=== PATIENT | female | born 2005 | race Caucasian/White ===

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

== ENCOUNTER 2025-01-03 15:58 | Emergency (ER) | payer MEDICAID, SELFPAY ==
[2025-01-03 16:28] VITALS: BP 111/68; PULSE 60; RESP 16; TEMP 36.9; O2SAT 99; BMI 23.8
--- NOTE | 2025-01-03 16:30 | ED.SKABFB ---
HPI - Skin/Abscess/Foreign Bdy General Chief complaint: General Medical Stated complaint: Infected piercing, fever Time Seen by Provider: 01/03/25 20:03 Source: patient and other ( senior living staff) Mode of arrival: ambulatory Limitations: language barrier ( Sierra Leonean-speaking bike assembler utilized) History of Present Illness ED Provider: Jenna Bennett NP HPI narrative: patient is a 19-year-old female who presents to the emergency department with senior living staff coming from a [facility], with reports of 8 days with intermittent fever, cough, a full-body rash previously red bumpy and itchy but has significantly improved over the past 2 days. Denies any known sick contacts denies any known allergens. Denies sore throat, difficulty breathing, difficulty swallowing, chest pain, shortness of breath. Related Data Previous Rx's ?Medication ?Instructions ?Recorded valacyclovir 1 gram tablet 1,000 mg PO BID cold sore outbreak 11/26/24 7 days #14 tabs amoxicillin 500 mg capsule 500 mg PO BID #19 caps 01/03/25 Allergies Allergy/AdvReac Type Severity Reaction Status Date / Time No Known Allergies Allergy Verified 01/03/25 16:34 Review of Systems Review of Systems: Yes all other systems are reviewed and are negative PMFSH Past Medical History Attestation statement: The following information was validated with the patient. Source: old records reviewed Social History Social History Advance Directives: No Advance Directives Information Provided: No Do you have a plan to hurt others: No Plan Physical Exam Vital Signs: Vital Signs: Last Vital Signs Temp 98.5 F 01/03/25 16:28 Pulse 60 01/03/25 16:28 Resp 16 01/03/25 16:28 BP 111/68 01/03/25 16:28 Pulse Ox 99 01/03/25 16:28 O2 Del Method Room Air 01/03/25 16:28 BMI result Body Mass Index 23.8 Appearance: Alert.?Oriented to person, place and time. No acute distress.?Normal affect. Eyes: Pupils equal, round and reactive to light.? ENT: Pharynx Is erythematous without tonsillar hypertrophy or exudates. Uvula is midline. No trismus. No drooling. Neck: Normal inspection.? Neck supple.?? No cervical adenopathy. CVS: Heart sounds normal. Normal heart rate and rhythm.? Pulses normal.?? Respiratory: No respiratory distress.? Lung sounds clear to auscultation bilaterally?? Abdomen: Soft and non-tender. Normoactive bowel sounds. ? Skin: Skin warm and dry.? Normal skin color.? No appreciable rash Extremities: No lower extremity edema.? Neuro: Moves all extremities spontaneously. Sensation intact bilaterally. Ambulates with normal steady gait. Course Course Course Narrative: This is an RME: Additional HPI, ROS, PE not included below will be deferred to primary provider. RME assessment and note performed by: Beverly Siddiqui PA-C This is a 48-female who presents to the ER with a complaint of right nare swelling and pain. Reports 8 days ago she has had fevers, cough and full body rash > not appreciated on exam as no privacy on exam. Also reporting rash throughout her entire body. Pt with ?keloid noted to right nare with TTP. Plan: Viral swabs, basic labs, further ER eval needed Medical Decision Making Medical Decision Making MDM Narrative: patient is a 19-year-old female who presents emergency department for evaluation of fever, cough, generalized rash which is not appreciated at the time of my evaluation. Workup obtained prior to my assumption of care reveals CBC without leukocytosis, mild normocytic anemia not meeting transfusion criteria, no thrombocytopenia. No significant electrolyte derangement. No JOHNNIE. LFTs are unremarkable. Viral serologies are negative. Group a strep testing is positive. Examination is not consistent with RPA/ ROAD TEST EXAMINER, and mild pharyngitis. Reviewed previously reported rash may have been secondary to the strep infection, I do not appreciate a rash at the time of my evaluation. She was given 1st dose of amoxicillin in the emergency department sent remainder prescription to pharmacy. Discussed worrisome signs and symptoms that would warrant re-evaluation, outpatient follow-up with primary care doctor. Differential Diagnosis Differential Diagnoses: The differential diagnosis associated with the presentation includes ( See narrative above) Lab Data [facility] Lab Attestation statement: I reviewed the patient's lab results. ( see narrative above) 01/03/25 16:46 01/03/25 16:46 Labs: Lab Results 01/03/25 01/03/25 Range/Units 16:45 16:46 WBC 6.1 (4.8-10.8) X10*3/uL RBC 3.89 L (4.20-5.50) X10*6/uL Hgb 10.8 L (12.0-16.0) g/dl Hct 33.2 L (37.0-47.0) % MCV 85.3 (80.0-98.0) fL MCH 27.8 (27.0-33.0) pg MCHC 32.5 (31.0-35.0) g/dl RDW 14.9 (11.0-16.0) % Plt Count 378 (160-400) X10*3/uL MPV 9.0 L (9.4-12.3) fL Immature Gran % (Auto) 0.3 (0.0-0.4) % Neut % (Auto) 53.0 (45-73) % Lymph % (Auto) 36.4 (20-40) % Norton % (Auto) 8.3 (2-11) % Eos % (Auto) 1.3 (0-4) % Baso % (Auto) 0.7 (0-2) % Lymph # (Auto) 2.2 (1.2-4.9) X10*3/uL Norton # (Auto) 0.5 (0.1-1.2) X10*3/uL Eos # (Auto) 0.1 (0.0-0.4) X10*3/uL Baso # (Auto) 0.0 (0.0-0.2) X10*3/uL Abs Immat Gran (auto) 0.02 (0.00-0.03) X10*3/uL Absolute Neuts (auto) 3.2 (2.0-8.3) x10*3/uL Absolute Nucleated RBC 0.000 (0.0-0.012) X10*3/uL Nucleated RBC % (auto) 0.0 (0.0-0.2) /100WBC Sodium 139 (135-145) mmol/L Potassium 4.3 (3.3-5.1) mmol/L Chloride 111 H (96-108) mmol/L Carbon Dioxide 25 (22-29) mmol/L Anion Gap 7 L (12-20) BUN 21 H (9-16) mg/dL Creatinine 0.61 (0.5-1.4) mg/dL Estim Creat Clear Calc 100.9 Estimated GFR > 60 Random Glucose 89 (60-115) mg/dL Calcium 9.6 (8.4-10.2) mg/dL Total Bilirubin 0.2 (0.0-1.0) mg/dL AST 18 (5-31) U/L ALT 11 (0-31) U/L Alkaline Phosphatase 84 (39-117) U/L Total Protein 7.5 (6.5-8.0) g/dL Albumin 4.4 (3.5-5.0) g/dL Influenza Type A (PCR) NEGATIVE (Negative) Influenza Type B (PCR) NEGATIVE (Negative) RSV RNA Qual (PCR) NEGATIVE (Negative) SARS-CoV-2 RNA (RT-PCR) NEGATIVE (Negative) S. pyogenes GrpA DANIELLE Positive A (Negative) Independent Historian Clinical information obtained from an independent historian. History obtained from or confirmed by: Other ( senior living staff) External Record Review External record reviewed: Outpatient record Prescription Management I considered prescription management with: Antibiotic Discharge Plan Discharge Clinical Impression: Acute streptococcal pharyngitis Patient Disposition: Home, Self-Care Instructions: Strep Throat (ED) Additional Instructions: received 1st dose of antibiotic in the emergency department tonight. Sent prescription for amoxicillin to take twice daily for a total of 10 days to pharmacy, begin prescription from the pharmacy tomorrow morning. Follow-up with primary care doctor. Return with a new or worsening symptoms or concerns Prescriptions: New amoxicillin 500 mg capsule 500 mg PO BID Qty: 19 0RF No Action valacyclovir 1 gram tablet 1,000 mg PO BID 7 Days Qty: 14 3RF Referrals: Joie Antoine PA-C [Primary Care Provider] - Print Language: Sierra Leonean
[2025-01-03 16:50] LABS: MANUAL DIFF FLAG NO
[2025-01-03 16:52] LABS: Basophils Percent Auto 0.7 % (0-2); Eosinophils Absolute Auto 0.1 X10*3/uL (0.0-0.4); Eosinophils Percent Auto 1.3 % (0-4); Hematocrit 33.2 % (37.0-47.0); Hemoglobin 10.8 g/dl (12.0-16.0); Imm Gran Abs Auto 0.02 X10*3/uL (0.00-0.03); Imm Gran Pct Auto 0.3 % (0.0-0.4); Lymphocytes Absolute Auto 2.2 X10*3/uL (1.2-4.9); Lymphocytes Percent Auto 36.4 % (20-40); Mean Corpuscular HGB Conc 32.5 g/dl (31.0-35.0); Mean Corpuscular Hemoglobin 27.8 pg (27.0-33.0); Mean Corpuscular Volume 85.3 fL (80.0-98.0); Monocytes Absolute Auto 0.5 X10*3/uL (0.1-1.2); Monocytes Percent Auto 8.3 % (2-11); Neutrophils Absolute Auto 3.2 x10*3/uL (2.0-8.3); Platelet Count 378 X10*3/uL (160-400); Red Blood Count 3.89 X10*6/uL (4.20-5.50); Red Cell Distribution Width 14.9 % (11.0-16.0); White Blood Count 6.1 X10*3/uL (4.8-10.8)
[2025-01-03 16:55] LABS: IDNOW Serial# 58CA691E; Strep A Nucleic Acid Positive (Negative)
[2025-01-03 17:09] LABS: Alanine Aminotransferase 11 U/L (0-31); Albumin Level 4.4 g/dL (3.5-5.0); Alkaline Phosphatase 84 U/L (39-117); Anion Gap 7 (12-20); Aspartate Amino Transferase 18 U/L (5-31); Bilirubin Total 0.2 mg/dL (0.0-1.0); Blood Urea Nitrogen 21 mg/dL (9-16); Calcium 9.6 mg/dL (8.4-10.2); Carbon Dioxide 25 mmol/L (22-29); Chloride 111 mmol/L (96-108); Creatinine Clr Calc Pharmacy 100.9; Estimated Glomerular Filt Rate > 60; Glucose Random 89 mg/dL (60-115); Potassium 4.3 mmol/L (3.3-5.1); Sodium 139 mmol/L (135-145); Total Protein 7.5 g/dL (6.5-8.0)
[2025-01-03 18:12] LABS: Influenza A PCR NEGATIVE (Negative); Influenza B PCR NEGATIVE (Negative); Resp Syncy Virus RNA Qual PCR NEGATIVE (Negative); SARS COV2 PCR INHOUSE NEGATIVE (Negative)
[2025-01-03] MEDS: Amoxicillin 500 MG CAPSULE PO (21:11)
[2025-01-03 21:25] VITALS: BP 111/68; PULSE 60; RESP 16; TEMP 36.9; O2SAT 99
== END 2025-01-03 21:25 | disposition home or self-care (01) ==
PROVIDERS: Physician Assistant Medical; Emergency Provider Emergency Medicine
DX: J02.0 Streptococcal pharyngitis (principal); R50.9 Fever, unspecified; R05.9 Cough, unspecified; Z03.818 Encounter for observation for suspected exposure to other biological agents ruled out
CPT/HCPCS: 0241U; 80053; 85025; 87651; 99282; 99283

== ENCOUNTER 2025-01-19 13:10 | Outpatient (AMB) | payer MEDICAID, SELFPAY ==
[2025-01-19 13:30] VITALS: BP 106/56; PULSE 71; TEMP 36.7; BMI 25.5
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
== END 2025-01-19 13:47 | disposition home or self-care (01) ==
LOC: HO.SBHN 13:10
PROVIDERS: Visit Provider Nurse Practitioner Family
DX: R51.9 Headache, unspecified (principal); G44.209 Tension-type headache, unspecified, not intractable
CPT/HCPCS: 99204

== ENCOUNTER → 2025-01-19 13:10 | Outpatient (BNVA) | payer OTHER, SELFPAY | PROVIDERS: Visit Provider Nurse Practitioner Family | DX: G44.209 Tension-type headache, unspecified, not intractable (principal) | CPT/HCPCS: 99212 ==